=== PATIENT | female | born 1965 | race African-American/Black ===

== ENCOUNTER 2017-08-06 16:30 | Emergency (ER) | payer MEDICAID, OTHER ==
[~2017-08-06] VITALS: Ht 162.6 cm; Wt 75.0 kg
[~2017-08-06 16:30] MED LIST: NOCURR
[2017-08-06] MEDS ORDERED: FERR134T2 PO (17:00)
[2017-08-06] MEDS ORDERED: OMEP20 PO (17:00)
[2017-08-06] MEDS ORDERED: AMOX500C2 PO (17:00)
[2017-08-06] MEDS ORDERED: CLAR250T PO (17:00)
[2017-08-06 19:18] LABS: BASOPHILS % (AUTO) 0.5 % (0.0-2.0); EOSINOPHILS % (AUTO) 1.9 % (1.0-6.0); HEMATOCRIT 32.7 % (36-46); HEMOGLOBIN 11.1 g/dL (12.0-16.0); LYMPHOCYTES # (AUTO) 1.8 K/uL (1.0-4.8); LYMPHOCYTES % (AUTO) 41.8 % (22.0-44.0); MEAN CORPUSCULAR HEMOGLOBIN 32.6 pg (26.0-34.0); MEAN CORPUSCULAR VOLUME 96 fL (80-100); MONOCYTES # (AUTO) 0.4 K/uL (0.1-1.0); MONOCYTES % (AUTO) 9.3 % (2.0-9.0); NEUTROPHILS % (AUTO) 46.5 % (40.0-70.0); PLATELET COUNT (AUTO) 217 K/uL (150-450); RED BLOOD CELL COUNT(AUTO) 3.41 MIL/uL (4.00-5.20); RED CELL DISTRIBUTION WIDTH 13.1 % (11.5-14.5)
[2017-08-06 19:26] LABS: CALCIUM, TOTAL 8.9 mg/dL (8.8-10.5); CREATININE 1.53 mg/dL (0.60-1.30); POTASSIUM 3.8 mmol/L (3.5-5.1)
[2017-08-06 19:32] LABS: ALBUMIN 3.8 g/dL (3.4-5.0); BILIRUBIN,TOTAL 0.5 mg/dL (0.1-1.0); TOTAL PROTEIN, SERUM 7.9 g/dL (6.4-8.2)
[2017-08-06 21:16] VITALS: BP 141/80
== END 2017-08-06 21:29 | disposition home or self-care (01) ==
LOC: EMS 16:31
DX: N93.8 Other specified abnormal uterine and vaginal bleeding (principal); R19.09 Other intra-abdominal and pelvic swelling, mass and lump; Z79.899 Other long term (current) drug therapy
CPT/HCPCS: 76830; 76856; 86850; 86900; 86901; 99285

== ENCOUNTER 2018-04-07 19:50 | Emergency (ER) | payer MEDICAID ==
[~2018-04-07] VITALS: Ht 162.6 cm; Wt 86.4 kg
[~2018-04-07 19:50] MED LIST changes: +AMOX500C2 PO; +CLAR250T PO; +FERR134T2 PO; +OMEP20 PO
[2018-04-07] MEDS ORDERED: ANTIBIOTIC PO (20:34)
[2018-04-07] MEDS ORDERED: ASCO500 PO (20:34)
[2018-04-07] MEDS ORDERED: IBUPROFEN 800 MG TABLET PO ONE (21:00)
[2018-04-07] MEDS ORDERED: CEPHALEXIN MONOHYDRATE 500 MG CAPSULE PO ONE (21:00)
[2018-04-07] MEDS ORDERED: BACITRACIN 0.9 GM PACKET OINTMENT TP ONE (21:00)
[2018-04-07] MEDS ORDERED: POVIDONE-IODINE 10% 15 ML SOLUTION UD TP ONE (21:00)
[2018-04-07] MEDS ORDERED: PERTUSS(ACELL),DIPH,TET VAC/PF 0.5 ML VIAL IM ONE (21:45)
[2018-04-07 21:47] VITALS: BP 141/76
== END 2018-04-07 21:48 | disposition home or self-care (01) ==
LOC: EMS 20:26
DX: L03.011 Cellulitis of right finger (principal); Z79.899 Other long term (current) drug therapy
CPT/HCPCS: 10060; 90471; 90715

== ENCOUNTER 2018-06-06 11:51 | Emergency (ER) | payer MEDICAID ==
[~2018-06-06] VITALS: Ht 163.8 cm; Wt 90.5 kg
[~2018-06-06 11:51] MED LIST changes: -AMOX500C2 PO; +ANTIBIOTIC PO; +ASCO500 PO; -CLAR250T PO; -FERR134T2 PO; -NOCURR
[2018-06-06] MEDS ORDERED: birth control PO (12:50)
[2018-06-06 13:47] VITALS: BP 138/79
== END 2018-06-06 13:57 | disposition home or self-care (01) ==
LOC: EMS 11:52
DX: M79.89 Other specified soft tissue disorders (principal); Z48.00 Encounter for change or removal of nonsurgical wound dressing

== ENCOUNTER 2024-11-07 10:04 | Emergency (ER) | payer MEDICAID ==
[~2024-11-07] VITALS: Ht 162.6 cm; Wt 72.7 kg
[~2024-11-07 10:04] MED LIST changes: -ANTIBIOTIC PO; +OMEP-148 PO; -OMEP20 PO; +birth control PO
[2024-11-07 10:13] VITALS: TEMP 98.4
[2024-11-07] MEDS ORDERED: IBUP-2070 PO (10:21)
[2024-11-07 10:37] LABS: COVID AG,FIA SOURCE NASAL SWAB
[2024-11-07 10:50] LABS: RAPID GROUP A STREP NEGATIVE (NEGATIVE)
[2024-11-07 10:58] LABS: INFLUENZA TYPE A NEGATIVE FOR TYPE A (NEGATIVE); INFLUENZA TYPE B NEGATIVE FOR TYPE B (NEGATIVE); SARS-COV2 (COVID) ANTIGEN,FIA Negative (Negative)
[2024-11-07] MEDS ORDERED: AMOX500C2 PO (12:10)
[2024-11-07] MEDS: OXYMETAZOLINE HCL 0.05% 15 ML NASAL SPRAY NASAL ONE (12:14)
[2024-11-07 12:26] VITALS: BP 130/79; PULSE 92; RESP 16; O2SAT 100
== END 2024-11-07 12:27 | disposition home or self-care (01) ==
LOC: EMS 10:04
DX: J32.9 Chronic sinusitis, unspecified (principal); R04.0 Epistaxis; Z87.440 Personal history of urinary (tract) infections; Z90.721 Acquired absence of ovaries, unilateral; Z20.822 Contact with and (suspected) exposure to COVID-19
CPT/HCPCS: 87430; 87804; 99283